=== PATIENT | female | born 1995 | race Caucasian/White ===

== ENCOUNTER 2016-12-23 12:51 | Inpatient (IN) | payer BC ==
[~2016-12-23] VITALS: Ht 157.5 cm; Wt 63.0 kg
[2016-12-23 15:14] VITALS: BP 126/69; PULSE 125; RESP 18
[2016-12-23 15:19] VITALS: Ht 157.5 cm; Wt 63.0 kg
[2016-12-23] MEDS ORDERED: morphine 2 MG INJ IV PRN (15:30)
[2016-12-23] MEDS: ONDANSETRON 4 MG INJ IV PRN ×2 (15:31→21:27)
[2016-12-23] MEDS: SOD CHLORIDE 0.45% 1,000 ML IV SCH ×2 (16:09→16:36)
--- NOTE | 2016-12-23 16:26 | HP ---
Date/Time of Note Date/Time of Note DATE: 12/23/16 TIME: 16:20 Assessment/Plan VTE Prophylaxis VTE Prophylaxis Intervention: ambulation Assessment/Plan Chief Complaint/Hosp Course 1. Pyelonephritis -obtain repeat UA and Ucx -Rocephin IV -pain control -IVF PPx-Ambulation Problems: HPI/ROS Admit Date/Time Admit Date/Time Dec 23, 2016 at 14:44 Hx of Present Illness Pt is a 21 Y/O F with no sig PMH except for Pyelo as a child. Pt presents with 3 days of L flank pain, f/c. Denies dysuria or frequency. Was Dx with Pyelo at an outside ER and was transferred to [facility] for Insurance reasons. ROS Constitutional: febrile Eyes: no complaints ENT: no complaints Respiratory: no complaints Cardiovascular: no complaints Gastrointestinal: no complaints Genitourinary: flank pain (Left) Musculoskeletal: no complaints Skin: no complaints Neurologic: no complaints Endocrine: no complaints Lymphatic: no complaints Psychological: nl mood/affect, no complaints Immunologic: no complaints PMH/Family/Social Past Medical History Medical History: no pertinent history Past Surgical History Past Surgical Hx: no surgical history Family History Significant Family History: other (sister with Igg Nephropathy ) Social History Alcohol Use: none Smoking Status: Never smoker Drug Use: none Exam/Review of Systems Vital Signs Vitals Vital Signs Date Time Temp Pulse Resp B/P Pulse Ox O2 Delivery O2 Flow Rate FiO2 12/23/16 16:13 103.0 12/23/16 15:14 125 18 126/69 93 Room Air Exam Constitutional: alert, oriented Head: normocephalic Respiratory: clear to auscultation Cardiovascular: regular rate and rhythm Gastrointestinal: soft, No distended Genitourinary - Female: CVA tenderness (Left) Musculoskeletal: nl extremities to inspection Medications Medications Current Medications Ondansetron HCl 4 mg 4 mg Q6H PRN IV NAUSEA AND/OR VOMITING Last administered on 12/23/16t 15:31; Admin Dose 4 MG; Start 12/23/16 at 15:30 Sodium Chloride (1/2 NS) 1,000 ml @ 100 mls/hr Q10H IV ; Start 12/23/16 at 16: 09; Status UNV Ondansetron HCl (Zofran Inj) 4 mg Q6H PRN IV NAUSEA AND/OR VOMITING; Start at 16:30; Status UNV Acetaminophen (Tylenol Tab) 650 mg Q6H PRN PO PAIN LEVEL 1-3 OR FEVER; Start at 16:30; Status UNV Acetaminophen/ Hydrocodone Bitart ([place] (5/325)) 1 tab Q6H PRN PO MODERATE PAIN LEVEL 4-6; Start 12/23/16 at 16:30; Status UNV Docusate Sodium (Colace) 100 mg Q12H PRN PO CONSTIPATION; Start 12/23/16 at 16: 30; Status UNV Magnesium Hydroxide (Milk Of Mag) 30 ml DAILY PRN PO CONSTIPATION; Start at 16:30; Status UNV Zolpidem Tartrate 5 mg 5 mg QHS PRN PO SLEEP; Start 12/23/16 at 16:30; Status UNV Ceftriaxone Sodium (Rocephin) 50 ml @ 100 mls/hr Q24H IVPB ; Start 12/23/16 at 16:30; Status UNV Morphine Sulfate (morphine) 4 mg Q3 PRN IV PAIN; Start 12/23/16 at 16:30; Status UNV Morphine Sulfate (morphine) 2 mg ONCE ONCE IV ; Start 12/23/16 at 16:30; Stop 12/23/16 at 16:31; Status UNV SHONDA HERNANDEZ Dec 23, 2016 16:26
[2016-12-23] MEDS ORDERED: MAGNESIUM HYDROXIDE 30ML CUP PO PRN (16:30)
[2016-12-23] MEDS ORDERED: CEFTRIAXONE 1 GM/50 ML (PMX) 50 ML IVPB SCH (16:30)
[2016-12-23] MEDS ORDERED: ONDANSETRON 4 MG INJ IV PRN (16:30)
[2016-12-23] MEDS ORDERED: morphine 2 MG INJ IV ONE (16:30)
[2016-12-23] MEDS ORDERED: NACL 0.9% 3 ML SYG IV SCH (16:30)
[2016-12-23] MEDS ORDERED: ZOLPIDEM 5 MG TAB PO PRN (16:30)
[2016-12-23] MEDS ORDERED: DOCUSATE SODIUM 100 MG CAP PO PRN (16:30)
[2016-12-23] MEDS: ACETAMINOPHEN 325 MG TAB PO PRN (16:35)
[2016-12-23] MEDS: SOD CHLORIDE 0.9% 1,000 ML IV SCH (17:14)
[2016-12-23 20:04] VITALS: BP 111/59; RESP 20
[2016-12-23] MEDS ORDERED: INFLUENZA VIRUS VACCINE 0.5 ML (DISPENSING) IM* ONE (20:30)
[2016-12-23 20:45] LABS: AADO2 Arterial 53.1 mmHg (7.0-24.0); Allen Test ACCEPTAB; Arterial COHb 0.3 % (0.0-3.0); Arterial Fraction of Oxyhgb 91.1 % (93.0-99.0); Arterial HCO3 20.4 mmol/L (22.0-26.0); Arterial MetHb 0.3 % (0.0-1.5); Arterial Total Hemglobin 11.6 g/dl (12.0-18.0); MODE ROOM AIR
--- NOTE | 2016-12-23 21:02 | RADRPT ---
PROCEDURE: XR Chest AP portable CLINICAL INDICATION: Short of breath, low O2 sats TECHNIQUE: An AP portable radiograph of the chest was submitted. COMPARISON: None. FINDINGS: Support Hardware: None Cardiovascular: The cardiovascular silhouette appears unremarkable. Lung [place]: The patient has taken a suboptimal inspiration. Foci of subsegmental atelectasis or str eaky infiltrate is seen within the medial lung bases bilaterally. Pleural Spaces: No pneumothorax or pleural effusion is identified. Osseous Structures: The osseous structures appear intact. Soft Tissues: The soft tissues appear unremarkable. IMPRESSION: 1. Suboptimal inspiration. 2. Subsegmental atelectasis versus streaky infiltrate involving the medial lung bases bilaterally. Physician Leonela Date Time Electronically viewed and signed by Physician Leonela on 12/23/2016 21:01 /
[2016-12-23] MEDS: morphine 2 MG INJ IV PRN (21:16)
[2016-12-23] MEDS: ALBUTEROL/IPRATROPIUM (NEB) 3 ML AMP HHN PRN (22:28)
[2016-12-23] MEDS: LEVOFLOXACIN 500MG/D5W (PMX) 100 ML IVPB SCH (22:57)
[2016-12-23 23:46] LABS: ADD UMIC YES; UR ASCORBIC ACID NEGATIVE (NEGATIVE); UR BACTERIA FEW /HPF (NONE SEEN); UR BILIRUBIN (Dip) NEGATIVE (NEGATIVE); UR BLOOD (Dip) 2+ mg/dL (NEGATIVE); UR CLARITY SLIGHTLY CLOUDY (CLEAR); UR COLOR YELLOW (YELLOW); UR GLUCOSE (Dip) NEGATIVE (NEGATIVE); UR KETONES (Dip) 1+ mg/dL (NEGATIVE); UR LEUKOCYTE ESTERASE (Dip) NEGATIVE Leu/ul (NEGATIVE); UR MUCUS FEW /HPF (NONE SEEN); UR NITRITE (Dip) NEGATIVE (NEGATIVE); UR RBC 7 /HPF (0-5); UR SPECIFIC GRAVITY (Dip) 1.015 (1.003-1.030); UR SQUAMOUS EPITHELIAL CELL FEW /HPF (FEW); UR TOTAL PROTEIN (Dip) 2+ mg/dl (NEGATIVE); UR UROBILINOGEN (Dip) 2+ mg/dL (NEGATIVE)
[2016-12-24] MEDS: ALBUTEROL/IPRATROPIUM (NEB) 3 ML AMP HHN PRN ×4 (02:13→19:51)
[2016-12-24 02:17] VITALS: BP 116/53; RESP 19
[2016-12-24] MEDS: morphine 2 MG INJ IV PRN ×6 (03:20→20:58)
[2016-12-24] MEDS: SOD CHLORIDE 0.9% 1,000 ML IV SCH ×3 (03:21→20:57)
[2016-12-24] MEDS: HYDROCODONE/APAP (5/325) TAB PO PRN ×3 (05:22→19:16)
[2016-12-24 05:23] LABS: ABNORMAL IP MESSAGE 1; BASOPHILS % 0.2 % (0.0-2.0); EOSINOPHILS % 0.1 % (0.0-7.0); HEMATOCRIT 29.7 % (37.0-47.0); HEMOGLOBIN 9.8 g/dl (12.0-16.0); LYMPHOCYTES # 0.8 10^3/ul (0.8-2.9); LYMPHOCYTES % 4.5 % (15.0-51.0); MEAN CORPUSCULAR HEMOGLOBIN 30.2 pg (29.0-33.0); MEAN CORPUSCULAR VOLUME 91.7 fl (82.0-101.0); MEAN PLATELET VOLUME 10.2 fl (7.4-10.4); MONOCYTE # 1.7 10^3/ul (0.3-0.9); MONOCYTES % 9.3 % (0.0-11.0); NEUTROPHIL # 15.4 10^3/ul (1.6-7.5); PLATELET COUNT 180 10^3/UL (140-415); RED BLOOD COUNT 3.24 10^6/ul (4.20-5.40); RED CELL DISTRIBUTION WIDTH 13.8 % (11.5-14.5); WHITE BLOOD COUNT 18.4 10^3/ul (4.8-10.8)
[2016-12-24 05:45] LABS: ALBUMIN 2.6 g/dl (3.3-4.9); ALBUMIN/GLOBULIN RATIO 0.81; BILIRUBIN,INDIRECT 0.3 mg/dl (0-1.1); BILIRUBIN,TOTAL 0.3 mg/dl (0.2-1.3); CREATININE 0.8 mg/dl (0.44-1.00); MAGNESIUM 1.6 mg/dl (1.7-2.5); POSITIVE DIFF @See below; POTASSIUM 3.6 mmol/L (3.5-5.1); TOTAL PROTEIN 5.8 g/dl (6.1-8.1)
[2016-12-24 07:27] VITALS: BP 116/57; PULSE 102
[2016-12-24] MEDS ORDERED: POTASSIUM PHOSPHATE 20 MEQ in SOD CHLORIDE 0.9% 250 ML IVPB ONE (10:00)
[2016-12-24] MEDS ORDERED: MAGNESIUM SULFATE 2 GM/50 ML 50 ML IVPB ONE (10:00)
--- NOTE | 2016-12-24 11:53 | PN ---
Date/Time of Note Date/Time of Note DATE: 12/24/16 TIME: 11:51 Assessment/Plan VTE Prophylaxis VTE Prophylaxis Intervention: ambulation Lines/Catheters IV Catheter Type (from Nrsg): Peripheral IV Urinary Cath still in place: No Assessment/Plan Chief Complaint/Hosp Course 1. Sepsis secondary to pyelonephritis -Follow-up on Ucx -Rocephin IV -pain control -IVF 2. Electrolytes Replete magnesium and phosphorus PPx-Ambulation Problems: Subjective 24 Hr Interval Summary Genitourinary: flank pain Exam/Review of Systems Vital Signs Vitals Vital Signs Date Time Temp Pulse Resp B/P Pulse Ox O2 Delivery O2 Flow Rate FiO2 12/24/16 08:39 2.0 12/24/16 08:34 106 20 94 Nasal Cannula 12/24/16 07:27 99.5 116/57 Intake and Output 12/23/16 12/23/16 12/24/16 15:00 23:00 07:00 Intake Total 50 ml 1670 ml Balance 50 ml 1670 ml Exam Constitutional: alert, oriented Respiratory: clear to auscultation Cardiovascular: regular rate and rhythm Gastrointestinal: soft, No distended Musculoskeletal: nl extremities to inspection Results Result Diagram: 12/24/16 0429 12/24/16 0429 Results 24 hrs Laboratory Tests Test 12/23/16 18:30 12/23/16 20:10 12/24/16 04:29 Urine Color YELLOW Urine Clarity SLIGHTLY CLOUDY A Urine pH 6.0 Urine Specific [place] 1.015 Urine Ketones 1+ H Urine Nitrite NEGATIVE Urine Bilirubin NEGATIVE Urine Urobilinogen 2+ H Urine Leukocyte Esterase NEGATIVE Urine Microscopic RBC 7 H Urine Microscopic WBC 17 H Urine Squamous Epithelial Cells FEW Urine Bacteria FEW A Urine Mucus FEW A Urine Hemoglobin 2+ H Urine Glucose NEGATIVE Urine Total Protein 2+ H Blood Gas Specimen Source Blood arterial Arterial Blood Date Drawn 12/23/2016 8:30:19 PM Arterial Blood pH (Temp corrected) 7.433 Arterial Blood pCO2 (Temp correct) 31.3 L Arterial Blood pO2 (Temp corrected) 59.2 L Arterial Blood HCO3 20.4 L Arterial Blood Base Excess -3.0 Arterial Blood Oxygen Saturation 91.6 L Casey Test ACCEPTAB Arterial Blood Gas Puncture Site Left Radial Arterial Blood Carboxyhemoglobin 0.3 Arterial Blood Methemoglobin 0.3 Blood Gas A-a O2 Differential 53.1 H Oxyhemoglobin Percent 91.1 L Total Hemoglobin 11.6 L Blood Gas Temperature 37.0 Blood Gas Modality ROOM AIR FiO2 21.0 Blood Gas Notified Whom UT Blood Gas Notified Time 12/23/2016 8:45:25 PM White Blood Count 18.4 H Red Blood Count 3.24 L Hemoglobin 9.8 L Hematocrit 29.7 L Mean Corpuscular Volume 91.7 Mean Corpuscular Hemoglobin 30.2 Mean Corpuscular Hemoglobin Concent 33.0 Red Cell Distribution Width 13.8 Platelet Count 180 Mean Platelet Volume 10.2 Neutrophils % 84.0 H Lymphocytes % 4.5 L Monocytes % 9.3 Eosinophils % 0.1 Basophils % 0.2 Nucleated Red Blood Cells % 0.0 Neutrophils # 15.4 H Lymphocytes # 0.8 Monocytes # 1.7 H Eosinophils # 0.0 Basophils # 0.0 Nucleated Red Blood Cells # 0.0 Sodium Level 132 L Potassium Level 3.6 Chloride Level 107 Carbon Dioxide Level 23 Anion Gap 6 L Blood Urea Nitrogen 2 L Creatinine 0.80 Glucose Level 97 Hemoglobin A1c 4.8 Calcium Level 8.0 L Phosphorus Level 2.0 L Magnesium Level 1.6 L Total Bilirubin 0.3 Direct Bilirubin 0.00 Indirect Bilirubin 0.3 Aspartate Amino Transf (AST/SGOT) 18 Alanine Aminotransferase (ALT/SGPT) 30 Alkaline Phosphatase 91 Total Protein 5.8 L Albumin 2.6 L Globulin 3.20 Albumin/Globulin Ratio 0.81 Medications Medications Current Medications Ondansetron HCl (Zofran Inj) 4 mg Q6H PRN IV NAUSEA AND/OR VOMITING Last administered on 12/23/16 21:27; Admin Dose 4 MG; Start 12/23/16 at 15:30 Ondansetron HCl (Zofran Inj) 4 mg Q6H PRN IV NAUSEA AND/OR VOMITING; Start at 16:30 Acetaminophen (Tylenol Tab) 650 mg Q6H PRN PO PAIN LEVEL 1-3 OR FEVER Last administered on 12/23/16 16:35; Admin Dose 650 MG; Start 12/23/16 at 16:30 Acetaminophen/ Hydrocodone Bitart ([place] (5/325)) 1 tab Q6H PRN PO MODERATE PAIN LEVEL 4-6 Last administered on 12/24/16 11:36; Admin Dose 1 TAB; Start at 16:30 Docusate Sodium (Colace) 100 mg Q12H PRN PO CONSTIPATION; Start 12/23/16 at 16: 30 Magnesium Hydroxide (Milk Of Mag) 30 ml DAILY PRN PO CONSTIPATION; Start at 16:30 Zolpidem Tartrate 5 mg 5 mg QHS PRN PO SLEEP; Start 12/23/16 at 16:30 Ceftriaxone Sodium (Rocephin) 50 ml @ 100 mls/hr Q24H IVPB Last administered on 12/23/16 16:35; Admin Dose 100 MLS/HR; Start 12/23/16 at 16:30 Morphine Sulfate 4 mg 4 mg Q3 PRN IV PAIN Last administered on 12/24/16 10:38 ; Admin Dose 4 MG; Start 12/23/16 at 16:30 Sodium Chloride 1,000 ml @ 100 mls/hr Q10H IV Last administered on 12/24/16 03:21; Admin Dose 100 MLS/HR; Start 12/23/16 at 17:00; Stop 12/24/16 at 22:59 Levofloxacin/ Dextrose 100 ml @ 100 mls/hr Q24H IVPB Last administered on 12/23 22:57; Admin Dose 100 MLS/HR; Start 12/23/16 at 22:30 Potassium Phosphate 20 meq/ Sodium Chloride 254.5455 ml @ 63.636 m... ONCE ONCE IVPB ; Start 12/24/16 at 10:00; Stop 12/24/16 at 13:59 Magnesium Sulfate (Magnesium Sulfate 2 Gm/50 ml) 50 ml @ 25 mls/hr ONCE ONCE IVPB Last administered on 12/24/16 11:17; Admin Dose 25 MLS/HR; Start at 10:00; Stop 12/24/16 at 11:59 SHONDA HERNANDEZ Dec 24, 2016 11:53
[2016-12-24] MEDS: CEFTRIAXONE 1 GM/50 ML (PMX) 50 ML IVPB SCH ×2 (13:30→20:57)
[2016-12-24 14:00] VITALS: BP 116/56; RESP 20
[2016-12-24 17:53] VITALS: BP 116/56; RESP 20
[2016-12-24] MEDS: ACETAMINOPHEN 325 MG TAB PO PRN (18:39)
[2016-12-24 20:00] VITALS: BP 110/54; RESP 20
[2016-12-24] MEDS: LEVOFLOXACIN 500MG/D5W (PMX) 100 ML IVPB SCH (22:29)
[2016-12-25] MEDS: ALBUTEROL/IPRATROPIUM (NEB) 3 ML AMP HHN PRN (01:15)
[2016-12-25 02:00] VITALS: BP 116/58; RESP 20
[2016-12-25] MEDS: HYDROCODONE/APAP (5/325) TAB PO PRN ×3 (04:43→22:08)
[2016-12-25 05:30] LABS: BASOPHILS % 0.2 % (0.0-2.0); EOSINOPHILS % 0.1 % (0.0-7.0); HEMATOCRIT 30.6 % (37.0-47.0); HEMOGLOBIN 10.2 g/dl (12.0-16.0); LYMPHOCYTES # 1.1 10^3/ul (0.8-2.9); LYMPHOCYTES % 8.4 % (15.0-51.0); MEAN CORPUSCULAR HEMOGLOBIN 30.7 pg (29.0-33.0); MEAN CORPUSCULAR HGB CONC 33.3 g/dl (32.0-37.0); MEAN CORPUSCULAR VOLUME 92.2 fl (82.0-101.0); MEAN PLATELET VOLUME 10.2 fl (7.4-10.4); MONOCYTE # 1.2 10^3/ul (0.3-0.9); MONOCYTES % 9.2 % (0.0-11.0); NEUTROPHIL # 10.6 10^3/ul (1.6-7.5); NEUTROPHILS % 81.6 % (39.0-77.0); PLATELET COUNT 199 10^3/UL (140-415); RED BLOOD COUNT 3.32 10^6/ul (4.20-5.40); RED CELL DISTRIBUTION WIDTH 13.8 % (11.5-14.5); WHITE BLOOD COUNT 13.1 10^3/ul (4.8-10.8)
[2016-12-25 05:55] LABS: ANION GAP 9 (8-16); BLOOD UREA NITROGEN < 2 mg/dl (7-20); CALCIUM 8.5 mg/dl (8.4-10.2); CARBON DIOXIDE 26 mmol/L (21-31); CHLORIDE 107 mmol/L (97-110); CREATININE 0.67 mg/dl (0.44-1.00); GLUCOSE 94 mg/dl (70-220); MAGNESIUM 1.8 mg/dl (1.7-2.5); PHOSPHORUS 2.5 mg/dl (2.5-4.9); POTASSIUM 3.6 mmol/L (3.5-5.1); SODIUM 138 mmol/L (135-144)
[2016-12-25 08:33] VITALS: BP 117/60; RESP 20
[2016-12-25] MEDS: CEFTRIAXONE 1 GM/50 ML (PMX) 50 ML IVPB SCH ×2 (08:56→21:12)
[2016-12-25] MEDS: ONDANSETRON 4 MG INJ IV PRN (12:07)
[2016-12-25 15:00] VITALS: BP 112/79; RESP 20
--- NOTE | 2016-12-25 19:07 | PN ---
Date/Time of Note Date/Time of Note DATE: 12/25/16 TIME: 19:04 Assessment/Plan VTE Prophylaxis VTE Prophylaxis Intervention: ambulation Lines/Catheters IV Catheter Type (from Nrsg): Saline Lock Urinary Cath still in place: No Assessment/Plan Chief Complaint/Hosp Course 1. Sepsis secondary to pyelonephritis-improving -Follow-up on Ucx, negative currently -Rocephin IV -pain control -Status post IVF 2. Electrolytes Magnesium and phosphorus now within normal limits PPx-Ambulation Problems: Subjective 24 Hr Interval Summary Genitourinary: flank pain Exam/Review of Systems Vital Signs Vitals Vital Signs Date Time Temp Pulse Resp B/P Pulse Ox O2 Delivery O2 Flow Rate FiO2 12/25/16 15:00 97.8 98 20 112/79 96 12/25/16 02:17 2.0 12/25/16 01:00 Nasal Cannula Intake and Output 12/24/16 12/24/16 12/25/16 15:00 23:00 07:00 Intake Total 100 ml 304.5455 ml 100 ml Balance 100 ml 304.5455 ml 100 ml Exam Constitutional: alert, oriented Respiratory: clear to auscultation Cardiovascular: regular rate and rhythm Gastrointestinal: soft, No distended Musculoskeletal: nl extremities to inspection Results Result Diagram: 12/25/16 0434 12/25/16 0434 Results 24 hrs Laboratory Tests Test 12/25/16 04:34 White Blood Count 13.1 #H Red Blood Count 3.32 L Hemoglobin 10.2 L Hematocrit 30.6 L Mean Corpuscular Volume 92.2 Mean Corpuscular Hemoglobin 30.7 Mean Corpuscular Hemoglobin Concent 33.3 Red Cell Distribution Width 13.8 Platelet Count 199 Mean Platelet Volume 10.2 Neutrophils % 81.6 H Lymphocytes % 8.4 L Monocytes % 9.2 Eosinophils % 0.1 Basophils % 0.2 Nucleated Red Blood Cells % 0.0 Neutrophils # 10.6 H Lymphocytes # 1.1 Monocytes # 1.2 H Eosinophils # 0.0 Basophils # 0.0 Nucleated Red Blood Cells # 0.0 Sodium Level 138 Potassium Level 3.6 Chloride Level 107 Carbon Dioxide Level 26 Anion Gap 9 Blood Urea Nitrogen < 2 L Creatinine 0.67 Glucose Level 94 Calcium Level 8.5 Phosphorus Level 2.5 Magnesium Level 1.8 Medications Medications Current Medications Ondansetron HCl (Zofran Inj) 4 mg Q6H PRN IV NAUSEA AND/OR VOMITING Last administered on 12/25/16 12:07; Admin Dose 4 MG; Start 12/23/16 at 15:30 Ondansetron HCl (Zofran Inj) 4 mg Q6H PRN IV NAUSEA AND/OR VOMITING; Start at 16:30 Acetaminophen (Tylenol Tab) 650 mg Q6H PRN PO PAIN LEVEL 1-3 OR FEVER Last administered on 12/24/16 18:39; Admin Dose 650 MG; Start 12/23/16 at 16:30 Docusate Sodium (Colace) 100 mg Q12H PRN PO CONSTIPATION Last administered on 18:49; Admin Dose 100 MG; Start 12/23/16 at 16:30 Magnesium Hydroxide (Milk Of Mag) 30 ml DAILY PRN PO CONSTIPATION; Start at 16:30 Zolpidem Tartrate (Ambien) 5 mg QHS PRN PO SLEEP Last administered on 22:29; Admin Dose 5 MG; Start 12/23/16 at 16:30 Morphine Sulfate 4 mg 4 mg Q3 PRN IV PAIN Last administered on 12/24/16 20:58 ; Admin Dose 4 MG; Start 12/23/16 at 16:30 Levofloxacin/ Dextrose 100 ml @ 100 mls/hr Q24H IVPB Last administered on 12/24 22:29; Admin Dose 100 MLS/HR; Start 12/23/16 at 22:30 Ceftriaxone Sodium (Rocephin) 50 ml @ 100 mls/hr Q12 IVPB Last administered on 12/25/16 08:56; Admin Dose 100 MLS/HR; Start 12/24/16 at 12:30 Acetaminophen/ Hydrocodone Bitart ([place] (5/325)) 1 tab Q4HWA PRN PO MODERATE PAIN LEVEL 4-6 Last administered on 12/25/16 10:20; Admin Dose 1 TAB; Start at 13:00 SHONDA HERNANDEZ Dec 25, 2016 19:07
[2016-12-25 20:00] VITALS: BP 125/75; RESP 20
[2016-12-25] MEDS: LEVOFLOXACIN 500MG/D5W (PMX) 100 ML IVPB SCH (22:41)
[2016-12-26 02:00] VITALS: BP 122/71; RESP 20
[2016-12-26 05:37] LABS: BASOPHILS % 0.2 % (0.0-2.0); EOSINOPHILS # 0.1 10^3/ul (0.0-0.5); EOSINOPHILS % 1.4 % (0.0-7.0); HEMATOCRIT 29.8 % (37.0-47.0); LYMPHOCYTES # 1.5 10^3/ul (0.8-2.9); LYMPHOCYTES % 22.2 % (15.0-51.0); MEAN CORPUSCULAR HEMOGLOBIN 29.9 pg (29.0-33.0); MEAN CORPUSCULAR HGB CONC 33.6 g/dl (32.0-37.0); MEAN CORPUSCULAR VOLUME 89.2 fl (82.0-101.0); MEAN PLATELET VOLUME 9.8 fl (7.4-10.4); MONOCYTE # 0.9 10^3/ul (0.3-0.9); MONOCYTES % 13.4 % (0.0-11.0); NEUTROPHIL # 4.1 10^3/ul (1.6-7.5); NEUTROPHILS % 61.9 % (39.0-77.0); PLATELET COUNT 228 10^3/UL (140-415); RED BLOOD COUNT 3.34 10^6/ul (4.20-5.40); RED CELL DISTRIBUTION WIDTH 13.9 % (11.5-14.5); WHITE BLOOD COUNT 6.7 10^3/ul (4.8-10.8)
[2016-12-26 06:15] LABS: CALCIUM 8.6 mg/dl (8.4-10.2); CREATININE 0.67 mg/dl (0.44-1.00); MAGNESIUM 1.8 mg/dl (1.7-2.5); POTASSIUM 3.8 mmol/L (3.5-5.1)
[2016-12-26] MEDS: ALBUTEROL/IPRATROPIUM (NEB) 3 ML AMP HHN PRN (07:48)
[2016-12-26 08:06] VITALS: BP 118/65; RESP 18
[2016-12-26] MEDS: CEFTRIAXONE 1 GM/50 ML (PMX) 50 ML IVPB SCH (08:31)
[2016-12-26] MEDS: ACETAMINOPHEN 325 MG TAB PO PRN (08:41)
[2016-12-26] MEDS ORDERED: LEVO750T25 PO ×2 (10:35→10:39)
--- NOTE | 2016-12-26 10:37 | PDOCDIS ---
Discharge Instructions DIAGNOSIS Discharge Diagnosis Urinary tract infection, sepsis CONDITION Patient Condition: Good ACTIVITY: Activity Restrictions: No Restrictions FOLLOW UP/APPOINTMENTS Follow-up Plan You have been diagnosed with a urinary tract infection, this is caused by bacteria. You have been treated with antibiotics. You were prescribed 4 more days of antibiotics (Levofloxacin) to complete after discharge. Return to medical care if you have worsening symptoms or any other concerns AYO EASON MD Dec 26, 2016 10:37
[2016-12-26] MEDS: HYDROCODONE/APAP (5/325) TAB PO PRN (13:06)
--- NOTE | 2016-12-26 14:24 | DS ---
Date/Time of Note Date/Time of Note DATE: 12/26/16 TIME: 14:23 Discharge Summary Admission/Discharge Info Admit Date/Time Dec 23, 2016 at 14:44 Discharge Date/Time Discharge Diagnosis Urinary tract infection, sepsis Patient Condition: Good Hx of Present Illness Pt is a 21 Y/O F with no sig PMH except for Pyelo as a child. Pt presents with 3 days of L flank pain, f/c. Denies dysuria or frequency. Was Dx with Pyelo at an outside ER and was transferred to [facility] for Insurance reasons. Hospital Course Patient diagnosed with sepsis 2/2 urinary tract infection. She improved rapidly with IV antiobiotics. She was hemodynamically stable and afebrile > 24 hours at discharge. No growth from her cultures. Given clinical improvemnt, she was discharged to complete a course of levaquin as an outpatient Home Meds Active Scripts Levofloxacin* (Levaquin*) 750 Mg Tablet, 750 MG PO DAILY for 4 Days, #4 TAB Antibiotics Prov:AYO EASON MD 12/26/16 Follow-up Plan You have been diagnosed with a urinary tract infection, this is caused by bacteria. You have been treated with antibiotics. You were prescribed 4 more days of antibiotics (Levofloxacin) to complete after discharge. Return to medical care if you have worsening symptoms or any other concerns Primary Care Provider Not On Staff Doctor Time spent on discharge: > 30 minutes Pending Labs Laboratory Tests Test 12/26/16 05:01 White Blood Count 6.710^3/ul (4.8-10.8) Red Blood Count 3.3410^6/ul (4.20-5.40) Hemoglobin 10.0g/dl (12.0-16.0) Hematocrit 29.8% (37.0-47.0) Mean Corpuscular Volume 89.2fl (82.0-101.0) Mean Corpuscular Hemoglobin 29.9pg (29.0-33.0) Mean Corpuscular Hemoglobin Concent 33.6g/dl (32.0-37.0) Red Cell Distribution Width 13.9% (11.5-14.5) Platelet Count 46446^3/UL (140-415) Mean Platelet Volume 9.8fl (7.4-10.4) Neutrophils % 61.9% (39.0-77.0) Lymphocytes % 22.2% (15.0-51.0) Monocytes % 13.4% (0.0-11.0) Eosinophils % 1.4% (0.0-7.0) Basophils % 0.2% (0.0-2.0) Nucleated Red Blood Cells % 0.0/100WBC (0.0-0.0) Neutrophils # 4.110^3/ul (1.6-7.5) Lymphocytes # 1.510^3/ul (0.8-2.9) Monocytes # 0.910^3/ul (0.3-0.9) Eosinophils # 0.110^3/ul (0.0-0.5) Basophils # 0.010^3/ul (0.0-0.1) Nucleated Red Blood Cells # 0.010^3/ul (0.0-0.0) Sodium Level 139mmol/L (135-144) Potassium Level 3.8mmol/L (3.5-5.1) Chloride Level 108mmol/L (97-110) Carbon Dioxide Level 25mmol/L (21-31) Anion Gap 10 (8-16) Blood Urea Nitrogen 5mg/dl (7-20) Creatinine 0.67mg/dl (0.44-1.00) Glucose Level 85mg/dl (70-220) Calcium Level 8.6mg/dl (8.4-10.2) Phosphorus Level 3.0mg/dl (2.5-4.9) Magnesium Level 1.8mg/dl (1.7-2.5) AYO EASON MD Dec 26, 2016 14:24
== END 2016-12-26 14:35 | disposition home or self-care (01) | DRG 872 ==
LOC: PP2 14:44
PROVIDERS: ADMIT Internal Medicine; ATTEND Internal Medicine
DX: A41.9 Sepsis, unspecified organism (principal); N12 Tubulo-interstitial nephritis, not specified as acute or chronic
CPT/HCPCS: 36600; 71010; 80048; 80053; 81001; 82803; 83036; 83735; 84100; 85025; 87040; 87086; 90686; 94640; 94664; J0696; J1956; J2270; J2405; J3475; J7030; J7050